=== PATIENT | female | born 1925 | race Caucasian/White ===

== ENCOUNTER 2016-03-20 22:43 | Emergency (ER) | payer MEDICARE, OTHER ==
[~2016-03-20] VITALS: Ht 175.3 cm; Wt 55.0 kg
[~2016-03-20 22:43] MED LIST: 1-ME1LIQ OR; ENOX30P SQ; HYDR-3580 PO; METO50; Z.0.WHEELSTD
[2016-03-20 22:47] VITALS: BP 153/79; PULSE 68; RESP 15; TEMP 97.7; O2SAT 93
[2016-03-21] MEDS ORDERED: AMLO10 PO (12:29)
[2016-03-21] MEDS ORDERED: MULT1TAB84 PO (12:29)
[2016-03-21] MEDS ORDERED: ATEN1TAB73 PO (12:29)
[2016-03-21] MEDS ORDERED: PRED20 PO (13:39)
[2016-03-21] MEDS ORDERED: ALBU6.7H INH (13:39)
[2016-05-02] MEDS ORDERED: METO25TA3 PO (15:45)
[2016-05-06] MEDS ORDERED: CEFT250S PO (08:18)
[2016-05-06] MEDS ORDERED: PRED10PA PO (08:18)
[2016-05-06] MEDS ORDERED: OXYB5TAB10 PO (08:18)
[2016-05-06] MEDS ORDERED: MUCI600T PO (08:18)
[2016-05-06] MEDS ORDERED: ALBU1AER5 INH (08:18)
[2016-05-06] MEDS ORDERED: SPIRCAP INH (08:18)
[2016-05-06] MEDS ORDERED: PANT40TA3 PO (08:18)
[2016-05-06] MEDS ORDERED: BENZ100 PO (08:18)
[2016-05-06] MEDS ORDERED: SYMB160A INH (08:18)
[2016-05-06] MEDS ORDERED: OXYGENTANK NAS.CANULA (15:16)
[2016-05-07] MEDS ORDERED: CODE30TA2 PO (11:01)
== END 2016-03-21 01:55 | disposition left against medical advice (07) ==
LOC: NED 22:43
DX: R05 Cough (principal)
CPT/HCPCS: 99281

== ENCOUNTER 2016-03-21 12:06 | Emergency (ER) | payer OTHER ==
[~2016-03-21] VITALS: Ht 172.7 cm; Wt 56.3 kg
[2016-03-21 12:15] VITALS: BP 116/65; PULSE 66; RESP 16; TEMP 98; O2SAT 96
[2016-03-21] MEDS ORDERED: MULT1TAB84 PO (12:29)
[2016-03-21] MEDS ORDERED: AMLO10 PO (12:29)
[2016-03-21] MEDS ORDERED: ATEN1TAB73 PO (12:29)
--- NOTE | 2016-03-21 12:53 | PD ---
HPI Chief Complaint: Respiratory Symptoms Time Seen by Provider: 12:42 Travel History International Travel<30 days: No Contact w/Intl Traveler<30days: No Traveled to known affect area: No History of Present Illness HPI This is an 89-year-old female who presents to the emergency department with 2 months of cough, constant, worse with laying flat, improved with sitting up, associated with a productive cough with yellow sputum. She denies any fevers or chills. She says she's completed a course of azithromycin as well as taken Mucinex and multiple cough syrups that her cough just isn't getting better. She denies any leg swelling. She is fairly immobile and mostly lives bed to chair. 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) Diabetes: No Diminished Hearing: No Endocrine: No Gastrointestinal Disorders: Yes GERD: No Genitourinary: No Hepatitis: No Hiatal Hernia: No Hypertension: Yes Immune Disorder: No Musculoskeletal: No Neurologic: Yes Psychiatric: No Reproductive: No Respiratory: No Immunizations Current: Yes Myocardial Infarction: No Thyroid Disease: No Ulcer: No Tetanus Vaccination: Unknown Influenza Vaccination: Yes ?: Not Menopausal: Yes Past Surgical History Abdominal Surgery: Yes (CHOLESYSTECTOMY 2004) AICD: No Appendectomy: Yes Arteriovenous Shunt: No Cardiac Surgery: No Cholecystectomy: Yes Ear Surgery: No Endocrine Surgery: No Eye Surgery: No Genitourinary Surgery: No Gynecologic Surgery: Yes (HYSTERECTOMY) Hysterectomy: Yes Insulin Pump: No Joint Replacement: No Oral Surgery: No Pacemaker: No Thoracic Surgery: No Other Surgery: Yes Social History Alcohol Use: No Tobacco Use: No Substance Use: No Allergies-Medications (Allergen,Severity, Reaction): Coded Allergies: No Known Allergies (Verified , 03/21/16) Reported Meds & Prescriptions Reported Meds & Active Scripts Active Reported Multivitamin Adults (Multiple Vitamins W/ Minerals) 1 Tab 1 Tab PO DAILY Norvasc (Amlodipine Besylate) 10 Mg Tab 10 Mg PO DAILY Tenormin (Atenolol) 25 Mg Tab 25 Mg PO BID Review of Systems Except as stated in HPI: all other systems reviewed are Neg Physical Exam Narrative GENERAL: Frail elderly female SKIN: Warm and dry. HEAD: Atraumatic. Normocephalic. EYES: Pupils equal and round. No injection or drainage. ENT: Moist mucous membranes NECK: Trachea midline. CARDIOVASCULAR: Regular rate and rhythm. No murmur appreciated. RESPIRATORY: Poor air movement, wet sounding cough with some wheeze, no accessory muscle use GASTROINTESTINAL: Abdomen soft, non-tender, nondistended. MUSCULOSKELETAL: No obvious deformities. NEUROLOGICAL: Awake and alert. No obvious cranial nerve deficits. Moving all extremities. PSYCHIATRIC: Appropriate mood and affect; insight and judgment normal. Data Data Last Documented VS Vital Signs Date Time Temp Pulse Resp B/P Pulse Ox O2 Delivery O2 Flow Rate FiO2 03/21/16 13:15 58 20 150/71 95 Room Air 03/21/16 12:15 98.0 Orders Chest, Single Ap (03/21/16 ) Albuterol-Ipratropium Neb (Duoneb Neb) (03/21/16 13:00) MDM Medical Decision Making Medical Screen Exam Complete: Yes Emergency Medical Condition: Yes Interpretation(s) Afebrile, no tachycardia, normotensive Chest x-ray: No acute process Differential Diagnosis Bronchitis, pneumonia, congestive heart failure, lung cancer Narrative Course This is an 89-year-old female who presents to the emergency department with a cough that's been worsening over the past 2 months. She is very well-appearing on exam. She does have a productive cough with some expiratory wheeze. She received a bronchodilator treatment in the emergency department. Chest x-ray was obtained which was negative for pneumonia. She is not hypoxic. I think she is safe for discharge. I suspect she has bronchitis. Patient will be treated with albuterol, prednisone and she says she has a Z-Petey at home and I encouraged her to take that. Diagnosis Primary Impression: Bronchitis Patient Instructions: General Instructions Additional Instructions: If you develop severe chest pain, shortness of breath, sweating, lightheadedness , dizziness or difficulty breathing return to the emergency department immediately. Followup with your primary care physician in 2-3 days if your symptoms are not resolved. Med/Other Pt SpecificInfo: Prescription(s) given Scripts Albuterol 6.7 GM Inh (Proventil Hfa 6.7 GM Inh)90 Mcg/Act Aer2 Puff INH Q4-6H PRN (SHORTNESS OF BREATH) #1 INHALER Ref 0 Prov:Maria Ines Villa MD 03/21/16 Prednisone 20 Mg Tab40 Mg PO DAILY 5 Days Prov:Maria Ines Villa MD 03/21/16 Disposition: 01 DISCHARGE HOME Condition: Stable Maria Ines Villa MD Mar 21, 2016 12:53
[2016-03-21] MEDS ORDERED: RESP: ALBUTEROL 2.5 MG/IPRATROPIUM 0.5 MG NEB (SCH) NEB ONE (13:00)
[2016-03-21 13:15] VITALS: BP 150/71; PULSE 58; RESP 20; O2SAT 95
--- NOTE | 2016-03-21 13:26 | RADHPO ---
EXAM DATE/TIME: 03/21/2016 13:07 [facility] COMPARISON: CHEST SINGLE AP, December 30, 2013, 18:33. INDICATIONS : Cough and shortness of breath for two months. MEDICAL HISTORY : Hypertension. SURGICAL HISTORY : None. ENCOUNTER: Initial ACUITY: 2 months PAIN SCORE: 0/10 LOCATION: Bilateral chest FINDINGS: A single view of the chest demonstrates the lungs to be symmetrically aerated without evidence of mas s, infiltrate or effusion. The cardiomediastinal contours are unremarkable. Minimal stable apical p leural thickening is present the left Osseous structures are intact. CONCLUSION: No acute disease. Yinka Haile MD FACR on March 21, 2016 at 13:25 Board Certified Radiologist. This report was verified electronically.
[2016-03-21] MEDS ORDERED: PRED20 PO (13:39)
[2016-03-21] MEDS ORDERED: ALBU6.7H INH (13:39)
[2016-05-02] MEDS ORDERED: METO25TA3 PO (15:45)
[2016-05-06] MEDS ORDERED: BENZ100 PO (08:18)
[2016-05-06] MEDS ORDERED: PRED10PA PO (08:18)
[2016-05-06] MEDS ORDERED: SYMB160A INH (08:18)
[2016-05-06] MEDS ORDERED: PANT40TA3 PO (08:18)
[2016-05-06] MEDS ORDERED: MUCI600T PO (08:18)
[2016-05-06] MEDS ORDERED: SPIRCAP INH (08:18)
[2016-05-06] MEDS ORDERED: OXYB5TAB10 PO (08:18)
[2016-05-06] MEDS ORDERED: CEFT250S PO (08:18)
[2016-05-06] MEDS ORDERED: ALBU1AER5 INH (08:18)
[2016-05-06] MEDS ORDERED: OXYGENTANK NAS.CANULA (15:16)
[2016-05-07] MEDS ORDERED: CODE30TA2 PO (11:01)
== END 2016-03-21 14:06 | disposition home or self-care (01) ==
LOC: PHED 12:06
DX: J40 Bronchitis, not specified as acute or chronic (principal); I10 Essential (primary) hypertension; Z86.73 Personal history of transient ischemic attack (TIA), and cerebral infarction without residual deficits; Z87.19 Personal history of other diseases of the digestive system; Z86.69 Personal history of other diseases of the nervous system and sense organs
CPT/HCPCS: 71010; 94664; 99283